=== PATIENT | female | born 1990 | race Caucasian/White ===

== ENCOUNTER 2016-05-30 17:44 | Emergency (ER) | payer OTHER | END 2016-05-30 18:49 | disposition home or self-care (01) | DX: S60.221A Contusion of right hand, initial encounter (principal); W23.0XXA Caught, crushed, jammed, or pinched between moving objects, initial encounter; Z97.5 Presence of (intrauterine) contraceptive device; Z87.42 Personal history of other diseases of the female genital tract ==

== ENCOUNTER 2017-01-01 11:53 | Emergency (ER) | payer OTHER ==
[2017-01-01 12:01] VITALS: BP 131/75
--- NOTE | 2017-01-01 13:35 | ED Physician Documentation ---
PD HPI UPPER EXT INJURY - Stated complaint Stated Complaint: THUMB LAC/INJ - Chief complaint Chief Complaint: Ext Problem - History obtained from History obtained from: Patient - History of Present Illness Location: Right, Finger (thumb) PD PAST MEDICAL HISTORY - Past Medical History Cardiovascular: None TIMBER SKIDDER: Endometriosis, Other (has IUP placed 2011 without periods since that time.) - Past Surgical History Past Surgical History: Yes - Present Medications Home Medications: Ambulatory Orders Medication Instructions Recorded Confirmed Amitriptyline [Elavil] 25 mg PO DAILY 05/30/16 01/01/17 Cetirizine HCl [Zyrtec] 10 mg PO DAILY 05/30/16 01/01/17 Cholecalciferol (Vitamin D3) 1,000 unit PO DAILY 01/01/17 01/01/17 [Vitamin D3] - Allergies Allergies/Adverse Reactions: Allergies Allergy/AdvReac Type Severity Reaction Status Date / Time amoxicillin Allergy Rash Verified 01/01/17 12:01 latex Allergy Rash Verified 01/01/17 12:01 Penicillins Allergy Rash Verified 01/01/17 12:01 - Social History Does the pt smoke?: No Smoking Status: Never smoker Does the pt drink ETOH?: No Does the pt have substance abuse?: No - Immunizations Immunizations are current?: Yes Results - Vitals Vitals: Vital Signs - 24 hr 01/01/17 11:58 Temperature 36.8 C Heart Rate 109 H Respiratory 18 Rate Blood Pressure 131/75 H O2 Saturation 98 Oxygen O2 Source Room air Departure - Departure Disposition: Home, Self Care Clinical Impression: Puncture wound of thumb, right Qualifiers: Encounter type: initial encounter Qualified Code(s): S61.031A - Puncture wound without foreign body of right thumb without damage to nail, initial encounter Condition: Stable Record reviewed to determine appropriate education?: Yes Instructions: ED Wound Puncture General Follow-Up: Mitch Villegas MD [Primary Care Provider] - Comments: Cleanse wound twice daily with soap and water and apply ointment. Keep it covered at work until it is sealed over. Tylenol or ibuprofen if needed for pains. Recheck if signs of infection. He did receive a tetanus booster today as well.
[2017-01-01] MEDS ORDERED: IBUPROFEN 400 MG TABLET PO STA (13:52)
[2017-01-01] MEDS ORDERED: ACETAMINOPHEN 325 MG TABLET PO STA (13:52)
[2017-01-01] MEDS ORDERED: TETANUS/DIPHTHERIA/PERTUSSIS 0.5 ML SYRINGE IM ONE (13:52)
[2017-01-01] MEDS ORDERED: TETANUS/DIPHT/PERTUSS (PED) 0.5 ML VIAL IM ONE (14:01)
[2017-01-01] MEDS ORDERED: IBUPROFEN 400 MG TABLET PO ONE (14:01)
[2017-01-01] MEDS ORDERED: ACETAMINOPHEN 325 MG TABLET PO ONE (14:01)
== END 2017-01-01 14:25 | disposition home or self-care (01) ==
LOC: ED 11:53
DX: S61.011A Laceration without foreign body of right thumb without damage to nail, initial encounter (principal); W45.0XXA Nail entering through skin, initial encounter; Y99.0 Civilian activity done for income or pay; Z23 Encounter for immunization
CPT/HCPCS: 1040M; 90471; 99283; A9270

== ENCOUNTER 2018-03-30 17:03 | Outpatient (CLI) | payer OTHER ==
[2018-03-30 17:34] LABS: CALCIUM 9.1 mg/dL (8.5-10.3); CREATININE 0.6 mg/dL (0.4-1.0)
[2018-03-30 17:44] LABS: BASOPHILS % (AUTO) 0.4 %; EOSINOPHILS % (AUTO) 0.5 %; HGB - HEMOGLOBIN 14.2 g/dL (12.0-16.0); LYMPHOCYTES # (AUTO) 2.1 10^3/uL (1.5-3.5); LYMPHOCYTES % (AUTO) 28.2 %; MEAN CORPUSCULAR HEMOGLOBIN 30.2 pg (27.0-31.0); MEAN CORPUSCULAR HGB CONC 33.4 g/dL (32.0-36.0); MEAN CORPUSCULAR VOLUME 90.5 fL (81.0-99.0); MEAN PLATELET VOLUME 8.3 fL (7.9-10.8); MONOCYTES # (AUTO) 0.5 10^3/uL (0.0-1.0); MONOCYTES % (AUTO) 7.1 %; NEUTROPHILS # (AUTO) 4.7 10^3/uL (1.5-6.6); NEUTROPHILS % (AUTO) 63.8 %; PLT - PLATELET COUNT 323 10^3/uL (130-450); RED BLOOD COUNT 4.69 10^6/uL (4.20-5.40); WHITE BLOOD COUNT 7.4 x10^3/uL (4.8-10.8)
[2018-03-30 17:57] LABS: BILIRUBIN,URINE NEGATIVE (NEGATIVE); GLUCOSE, URINE (UA) NEGATIVE (NEGATIVE); KETONES,URINE (UA) NEGATIVE (NEGATIVE); LEUKOCYTE ESTERASE, URINE NEGATIVE (NEGATIVE); NITRITE,URINE NEGATIVE (NEGATIVE); OCCULT BLOOD,URINE NEGATIVE (NEGATIVE); PROTEIN,URINE NEGATIVE (NEGATIVE); UROBILINOGEN,URINE 0.2 (NORMAL) E.U./dL (NORMAL)
[2018-03-30 17:59] LABS: CLARITY,URINE CLEAR (CLEAR); HCG UR QUAL NEGATIVE
== END 2018-03-30 17:04 | disposition home or self-care (01) ==
LOC: LAB 17:03
PROVIDERS: ATTEND Obstetrics & Gynecology
DX: R10.2 Pelvic and perineal pain (principal)
CPT/HCPCS: 36415; 80048; 81003; 81025; 85025; 86850; 86900; 86901

== ENCOUNTER 2018-04-01 06:09 | Inpatient (IN) | payer OTHER ==
[2018-04-01] MEDS ORDERED: ceFAZolin 2 GM/50 ML 2 GM/50 ML BAG IV ONE (06:32)
[2018-04-01 06:58] LABS: HCG UR QUAL NEGATIVE
--- NOTE | 2018-04-01 07:01 | ANESTHESIA ---
Pre-Anesthesia VS, & Labs - Diagnosis Pelvic Pain - Procedure LAVH, B Salpingectomy Vital Signs: Temp Pulse Resp BP Pulse Ox 36.8 C 82 16 121/76 99 04/01/18 06:52 04/01/18 06:52 04/01/18 06:52 04/01/18 06:52 04/01/18 06:52 Height 5 ft 8 in Weight (kg) 74.39 kg Body Mass Index 25.0 - NPO >8 hours - Is Patient ?: No - Lab Results Lab results reviewed: Yes Home Medications and Allergies Home Medications: Ambulatory Orders Fluticasone [Flonase] 1 sprays MARK ANTHONY BID 03/25/18 Loratadine [Claritin] 10 mg PO 03/25/18 Rizatriptan Benzoate [Maxalt Assisted Living Coordinator] 5 mg PO PRN 03/25/18 Sumatriptan Succinate [Imitrex] 4 mg SQ PRN 03/25/18 Valacyclovir HCl [Valtrex] 1,000 mg PO PRN 03/25/18 Verapamil [Calan] 80 mg PO DAILY PM 03/25/18 Amitriptyline [Elavil] 25 mg PO DAILY PM 05/30/16 Cholecalciferol (Vitamin D3) [Vitamin D3] 1,000 unit PO DAILY 01/01/17 Fluticasone [Flonase] 1 sprays MARK ANTHONY BID 03/25/18 Loratadine [Claritin] 10 mg PO 03/25/18 Rizatriptan Benzoate [Maxalt Assisted Living Coordinator] 5 mg PO PRN 03/25/18 Sumatriptan Succinate [Imitrex] 4 mg SQ PRN 03/25/18 Valacyclovir HCl [Valtrex] 1,000 mg PO PRN 03/25/18 Verapamil [Calan] 80 mg PO DAILY PM 03/25/18 Allergies/Adverse Reactions: Allergies Allergy/AdvReac Type Severity Reaction Status Date / Time amoxicillin Allergy Rash Verified 03/25/18 14:53 Penicillins Allergy Rash Verified 03/25/18 14:53 Anes History & Medical History - Anesthetic History Anesthesia Complications: reports: No previous complications Family history of Anesthesia Complications: Denies Family history of Malignant Hyperthermia: Denies - Medical History Cardiovascular: reports: None Pulmonary: reports: None Gastrointestinal: reports: None Urinary: reports: Other Musculoskeletal: reports: None Endocrine/Autoimmune: reports: None Skin: reports: Herpes zoster Smoking Status: Never smoker - Surgical History Gynecologic: Other Exam General: Alert, Oriented x3, Cooperative Dental: WNL Mouth Openin Fingerbreadth Neck Mobility: Normal Mallampati classification: II Thyromental Distance: 4-6 cm Respiratory: Lungs clear, Normal breath sounds Cardiovascular: Regular rate Mental/Cognitive Status: Alert/Oriented X3 Plan Anesthesia Type: General Consent for Procedure(s) Verified and Reviewed: Yes Code Status: Attempt Resuscitation ASA classification: 1-Healthy patient Is this case an emergency?: No
[2018-04-01] MEDS ORDERED: LACTATED RINGERS 1,000 ML IV ONE ×3 (07:07→11:15)
[2018-04-01] MEDS ORDERED: BUPIVACAINE 0.25% PF 30 ML VIAL ONE (07:36)
[2018-04-01] MEDS ORDERED: LIDOCAINE 1%-EPI 1:100000 30 ML MDV ONE (07:36)
--- NOTE | 2018-04-01 07:47 | OPERATIVE REPORT ---
Operative Report - General Admit Date: 04/01/18 Planned Procedure: Laparoscopic assisted vaginal hyst, bilateral salpingectomies Pre-Op Diagnosis: Chronic pelvic pain, endometriosis - Procedure Note Primary Surgeon: Dr. Juliet Holbrook Secondary Surgeon: Dr. Rei Cash Anesthesia Technique: General ET tube, Local Pathology: Uterus, cervix, and bilateral fallopian tubes Drain/Tube Type: Other (Banerjee catheter) - Other Other Information/Narrative: Indication: The patient is a 27-year-old 0 here for definitive surgical management of chronic pelvic pain and reported history of endometriosis. She has had on and off pelvic pain for several years. Laparoscopy with cystoscopy and hydrodistension in March 2015 was normal, though she reportedly had endometriosis noted on laparoscopy in 2011. She has been using a Mirena intrauterine device to suppress ovulation to manage her pain. This worked well for awhile. However, for the past 10 months, pain has been increasing again. She reports pain is primarily at the right lower quadrant with occasional left flank pain. Dyspareunia has also been a problem for her, though this was transiently improved over the years as well. She has been for referred to pelvic floor physical therapy but has not initiated that care yet. Additionally she has a history of urinary frequency and frequent UTIs sx. She has a history of migraines and allergies as well and is status post a LEEP in 2011. Her last Pap and HPV in January 2015 was normal. Though she is a nulligravida patient, she has no desire for future childbearing and has thoroughly considered such with her spouse. She has tried management of possible interstitial cystitis with bladder instillations performed in the outpatient setting. These were beneficial in 2016. However, recent trials have not been helpful for her. At this point, she is feeling that she would like definitive surgery to help with her chronic pain and as she has no desire for future childbearing desires a hysterectomy. We discussed the possibility that her pain may not improve after the hysterectomy or may recur in months to years, possibly requiring additional surgery to remove her ovaries. The alternatives for mgmt of her symptoms were discussed, and the patient desired to proceed with a hysterectomy. Risks, benefits, limitations, alternatives, and expectations or surgery were discussed, and the consent was reviewed and signed prior to the date of surgery. Findings: Exam under anesthesia: Uterus midplane, 7 wks, with no adnexal masses palpable. Surgery: IUD strings seen at time of placement of uterine manipulator. The IUD was removed prior to manipulator insertion. Laparoscopically, theh uterus was 6-7 weeks size with no Masses present.Fallopian tubes and ovaries were visualized, and 1/2 cm paratubal cyst was noted at the left fallopian tube. The fimbriated, distal end of the right fallopian tube was notable for an endometriosis lesion. 2 additional small endometriotic lesions were noted within the cul-de-sac. One was noted over the right uterosacral ligament, and one noted over the left uterosacral ligament. These were both absent at the completion of the surgery, suggesting removal with the uterus and cervix. No other endometriosis lesions were noted. The appendix was visualized and appeared normal. The bowel was noted to be full of gas, which limited visualization of the liver edge. There were no adhesions or other intracranial abnormalities noted. Procedure: The patient was taken to the operating room, where general endotracheal anesthesia was administered without difficulty. She was then positioned with her lower extremities in yellow-fin stirrups. Exam under anesthesia was then performed with the findings as noted above. Perineum, vagina, and abdomen were then prepped and draped in sterile fashion, and a banejree catheter was placed. Time out was then performed. Attention was first turned to placement of a uterine manipulator. A sterile bivalve speculum was inserted, and the cervix grasped with a single-toothed tenaculum. The IUD strings were grasped, and the Mirena IUD easily removed. The cervix was then dilated until a HUMI uterine manipulator could be placed and balloon inflated. The tenaculum and speculum were then removed. Attention was then turned to the laparoscopy. 0.25% Marcaine, plain, was injected infraumbilically, then a 7-mm vertical skin incision made. A Verrees needle was then inserted through the anterior layers of the abdominal wall with saline drop test suggesting intraperitoneal placement. Carbon dioxide gas insufflation was then performed with appropriate opening pressures noted. Once 2 L of gas was instilled, a 0-degree, 5 mm laparoscope was inserted into a 5 mm trocar and passed through the anterior layers of the abdominal wall using Optiview technique. The abdomen was visualized, then 2 additional ports placed at the right and left lower quadrants, first instilling local anesthetic then placing 5 mm ports. The patient was placed into Trendelenberg and bowel swept out of the cul-de-sac. The left distal fallopian tube was grasped and pulled anteriorly while the left tubo-ovarian ligament was cross-clamped, cauterized, and cut using the PlasmaKinetic. This incision was then extended medially across the mesosalpinx until the cornual region was reached. The left round ligament was then cross- clamped, cauterized, and cut, then the anterior leaf of the broad ligament undermined, cauterized, and cut starting the bladder flap dissection on the left. The left utero-ovarian pedicle was then cross-clamped, cauterized, and cut, then this incision extended into the peritoneum inferiorly. The left uterine vessels were then skeletonized, cross-clamped, cauterized, and cut. Attention was then turned to the right side, where the dissection was completed in similar fashion. The bladder flap was extended across the midline, completely dissecting the bladder inferiorly. Any bleeding was controlled with cautery. The trocars were left in situ as well as the majority of the gas while attention was turned to the vaginal portion of the case. The lower extremities were elevated to high lithotomy, and the uterine manipulator was removed and a sterile weighted speculum placed. The cervix was grasped with a double-toothed tenaculum, then 1% Lidocaine with epinephrine was injected circumferentially for hemostasis. A circumferential incision was then made with cauterization. The posterior cul-de-sac was then entered sharply, and an Auvard speculum placed after tagging the midline posterior peritoneum. The left, then right, uterosacral ligament was cross-clamped, cut, and suture- ligated with 0 vicryl. These were tagged for later identification. Two additional pedicles were then cut and suture-ligated before the anterior cul-de-sac could be entered bluntly using a moist sponge and the digital printer operator's finger. Two additional pedicles were secured on each side, then the uterus, cervix, and tubes removed vaginally. The peritoneum was then closed with a purse-string suture of 0 vicryl, then the vaginal cuff was irrigated with sterile saline. Cautery was applied as needed to achieve hemostasis, then the vaginal mucosa was closed with serial figure of eight sutures of 0 vicryl. A sponge stick was placed, and attention returned to laparoscopy to visualize the cuff for bleeding. The lower extremities were replaced into low lithotomy. Gas was instilled again, and the dissections site noted to have some bleeding at the left peritoneal edge just below the cuff. This was cauterized then hemostatic. Copious irrigation was performed. The dissection area appeared clear of the ureters, which were not easily visualized due to bowel in the cul-de-sac. At this point the procedure was deemed complete. The gas was allowed to escape, and the trocars removed. The incisions were then closed with 4-0 monocryl in a subcuticular fashion followed by Dermabond. The sponge stick was removed from the vagina. The patient was then replaced supine, awakened, extubated, and transferred to the PACU in stable condition. There were no complications. Sponge, lap, and needle count were correct x 3.
[2018-04-01] MEDS ORDERED: PROPOFOL 200 MG/20 ML VIAL IVP ONE (08:00)
[2018-04-01] MEDS ORDERED: ACETAMINOPHEN 1,000 MG/100 ML 100 ML IV ONE (08:00)
[2018-04-01] MEDS ORDERED: GLYCOPYRROLATE 1 MG/5 ML VIAL IVP ONE (08:00)
[2018-04-01] MEDS ORDERED: DEXAMETHASONE 4 MG/ML VIAL IVP ONE (08:00)
[2018-04-01] MEDS ORDERED: ONDANSETRON 4 MG/2 ML VIAL IVP ONE (08:00)
[2018-04-01] MEDS ORDERED: LIDOCAINE-MPF 2% 5 ML VIAL IM ONE (08:00)
[2018-04-01] MEDS ORDERED: KETOROLAC 30 MG/ML VIAL IVP ONE (08:00)
[2018-04-01] MEDS ORDERED: fentaNYL 250 MCG/5 ML VIAL IVP ONE (08:00)
[2018-04-01] MEDS ORDERED: ROCURONIUM 50 MG/5 ML VIAL IVP ONE (08:00)
[2018-04-01] MEDS ORDERED: NEOSTIGMINE 1 MG/1 ML 10 ML MDV IVP ONE (08:00)
[2018-04-01] MEDS ORDERED: MIDAZOLAM 2 MG/2 ML VIAL IVP ONE (08:00)
[2018-04-01] MEDS ORDERED: BUPIVACAINE 0.25% PF 30 ML VIAL SUBQ ONE ×2 (08:19)
[2018-04-01] MEDS ORDERED: LIDOCAINE 1%-EPI 1:100000 30 ML MDV SUBQ ONE ×3 (08:37→08:58)
[2018-04-01] MEDS ORDERED: ONDANSETRON 4 MG/2 ML VIAL IVP PRN (10:28)
[2018-04-01] MEDS ORDERED: SIMETHICONE CHEW 80 MG TABLET PO PRN (10:28)
[2018-04-01] MEDS ORDERED: oxyCODONE/ACET 5/325 Prepack 4 PO STA (10:34)
[2018-04-01] MEDS ORDERED: oxyCODONE 5 MG TABLET PO PRN (10:43)
[2018-04-01] MEDS: fentaNYL 100 MCG/2 ML VIAL ONE ×2 (10:53→11:03)
[2018-04-01] MEDS ORDERED: diphenhydrAMINE INJ 50 MG/ML VIAL ONE (11:17)
[2018-04-01] MEDS: KETOROLAC 30 MG/ML VIAL IVP SCH ×3 (11:28→22:37)
[2018-04-01] MEDS: LACTATED RINGERS 1,000 ML IV SCH ×2 (11:28→19:50)
[2018-04-01] MEDS: ACETAMINOPHEN 500 MG TABLET PO SCH ×3 (12:05→23:59)
[2018-04-01] MEDS: MORPHINE 10 MG/ML VIAL IVP PRN ×2 (13:24→16:43)
[2018-04-01] MEDS ORDERED: SODIUM CHLORIDE FLUSH 0.9% 10 ML SYRINGE ONE ×3 (16:39→22:34)
[2018-04-01] MEDS ORDERED: METOCLOPRAMIDE 10 MG/2 ML VIAL IVP PRN (18:00)
[2018-04-01] MEDS ORDERED: AMITRIPTYLINE 25 MG TABLET PO SCH (21:00)
[2018-04-01] MEDS: DOCUSATE SODIUM 100 MG CAPSULE PO SCH (21:05)
[2018-04-01] MEDS: VERAPAMIL 80 MG TABLET PO SCH (21:05)
[2018-04-02] MEDS: KETOROLAC 30 MG/ML VIAL IVP SCH (05:01)
[2018-04-02] MEDS: ACETAMINOPHEN 500 MG TABLET PO SCH ×2 (05:02→12:35)
[2018-04-02 05:17] LABS: BASOPHILS # (AUTO) 0.1 10^3/uL (0.0-0.1); BASOPHILS % (AUTO) 0.7 %; EOSINOPHILS % (AUTO) 0.2 %; HGB - HEMOGLOBIN 12.4 g/dL (12.0-16.0); LYMPHOCYTES # (AUTO) 1.6 10^3/uL (1.5-3.5); LYMPHOCYTES % (AUTO) 20.9 %; MEAN CORPUSCULAR HEMOGLOBIN 30.6 pg (27.0-31.0); MEAN CORPUSCULAR HGB CONC 33.8 g/dL (32.0-36.0); MEAN CORPUSCULAR VOLUME 90.5 fL (81.0-99.0); MONOCYTES # (AUTO) 0.7 10^3/uL (0.0-1.0); MONOCYTES % (AUTO) 9.5 %; NEUTROPHILS # (AUTO) 5.4 10^3/uL (1.5-6.6); NEUTROPHILS % (AUTO) 68.7 %; PLT - PLATELET COUNT 278 10^3/uL (130-450); RED BLOOD COUNT 4.04 10^6/uL (4.20-5.40); RED CELL DISTRIBUTION WIDTH 12.9 % (12.0-15.0); WHITE BLOOD COUNT 7.9 x10^3/uL (4.8-10.8)
[2018-04-02] MEDS: DOCUSATE SODIUM 100 MG CAPSULE PO SCH (09:15)
[2018-04-02] MEDS: VERAPAMIL 80 MG TABLET PO SCH (09:15)
[2018-04-02] MEDS ORDERED: SODIUM CHLORIDE FLUSH 0.9% 10 ML SYRINGE ONE (11:00)
[2018-04-02 15:15] VITALS: BP 112/73
--- NOTE | 2018-04-02 15:30 | DISCHARGE SUMMARY ---
"Discharge Summary Admit Date: 04/01/18 Discharge Date: 04/02/18 Discharging Provider: Dr. Juliet Holbrook Code Status: Attempt Resuscitation Condition at Discharge: Good Discharge Disposition: 01 Home, Self Care - DIAGNOSES Admission Diagnoses: Chronic pelvic pain, endometriosis Discharge Diagnoses with Status of Each Condition: Chronic pelvic pain, endometriosis, s/p LAVH with bilateral salpingectomies - HPI History of Present Illness: Please see admission H&P. - CONSULTS | PROCEDURES Consultations: None Procedures: Laparoscopic assisted vaginal hysterectomy with bilateral salpingectomies - HOSPITAL COURSE Hospital Course: After an uncomplicated surgical procedure the patient was admitted to the recovery room and then the [facility] in stable condition. On the night of surgery she did well. Pain was well controlled with Toradol and oral pain medications. On postoperative day #1 she was ambulating, tolerating regular diet with no nausea or vomiting, and pain was well controlled with Toradol and oral pain medications. Her Tavarez catheter had been removed in the morning and she met her due to void without concerns. Her vital signs were normal and stable during her hospital stay. - ALLERGIES Allergies/Adverse Reactions: Allergies Allergy/AdvReac Type Severity Reaction Status Date / Time amoxicillin Allergy Rash Verified 03/25/18 14:53 Penicillins Allergy Rash Verified 03/25/18 14:53 - MEDICATIONS Home Medications: Ambulatory Orders Medication Instructions Recorded Confirmed Amitriptyline [Elavil] 50 mg PO QPM 05/30/16 04/01/18 Loratadine [Claritin] 10 mg PO DAILY 03/25/18 04/01/18 Rizatriptan Benzoate [Maxalt Hand Upper And Bottom Lacer] 5 mg PO DAILY PRN 03/25/18 04/01/18 Sumatriptan Succinate [Imitrex] 4 mg SQ DAILY PRN 03/25/18 04/01/18 Valacyclovir HCl [Valtrex] 1,000 mg PO DAILY PRN 03/25/18 04/01/18 Verapamil [Calan] 80 mg PO QPM 03/25/18 04/01/18 Azelastine HCl 2 spray MARK ANTHONY BID 04/01/18 04/01/18 Fluticasone [Flonase] 2 sprays MARK ANTHONY DAILY PRN 04/01/18 04/01/18 Verapamil HCl 80 mg PO DAILY PRN 04/01/18 04/01/18 Home Medications Other | Comments: Patient has meds at home: Motrin 800 mg p.o. every 8 hours Percocet 1 tab p.o. every 4 hours or 2 tabs p.o. every 6 hours as needed pain Surfak 240 mg p.o. twice daily as needed constipation - PHYSICAL EXAM AT DISCHARGE General Appearance: positive: No acute distress, Alert Respiratory: positive: No respiratory distress, Breath sounds nml Cardiovascular: positive: Regular rate & rhythm, No murmur, No gallop Abdomen: positive: Nml bowel sounds, No distention, Tenderness (Appropriate po stop tenderness noted) Skin: positive: Color nml Extremities: positive: Nml appearance Neurologic/Psychiatric: positive: Oriented x3, Mood/affect nml - LABS Result Diagrams: 04/02/18 04:55 - FOLLOW UP Follow Up: [id number] at [facility] as scheduled - TIME SPENT Time Spent in Discharge (Minutes): 15"
--- NOTE | 2018-04-02 15:41 | Discharge Plan ---
Discharge Plan Disposition: 01 Home, Self Care Condition: Good Diet: Regular Activity Restrictions: See handout Shower Restrictions: No Driving Restrictions: Yes (May drive when pain-free off narcotics) Weight Bearing: Full Weight Additional Instructions or Follow Up instructions: See handout No Smoking: If you smoke, Please STOP! Call for help.
== END 2018-04-02 16:29 | disposition home or self-care (01) | DRG 743 ==
LOC: MS2 06:09
PROVIDERS: ADMIT Obstetrics & Gynecology; ATTEND Obstetrics & Gynecology
PROC: 0UT7FZZ Resection of Bilateral Fallopian Tubes, Via Natural or Artificial Opening With Percutaneous Endoscopic Assistance (ICD-10-PCS; 2018-04-01)
PROC: 0UT9FZZ Resection of Uterus, Via Natural or Artificial Opening With Percutaneous Endoscopic Assistance (ICD-10-PCS; principal; 2018-04-01 07:30)
DX: N80.0 Endometriosis of uterus (principal); R10.2 Pelvic and perineal pain; F43.21 Adjustment disorder with depressed mood; J30.2 Other seasonal allergic rhinitis; G89.29 Other chronic pain; G47.00 Insomnia, unspecified; N85.4 Malposition of uterus; F34.1 Dysthymic disorder; N87.9 Dysplasia of cervix uteri, unspecified; Z87.440 Personal history of urinary (tract) infections; R35.0 Frequency of micturition; G43.909 Migraine, unspecified, not intractable, without status migrainosus; Z88.1 Allergy status to other antibiotic agents; Z88.0 Allergy status to penicillin
CPT/HCPCS: 36415; 81025; 85025; 88307

== ENCOUNTER 2018-11-23 17:00 | Outpatient (CLI) | payer OTHER ==
[2018-11-23] MEDS ORDERED: GADOBUTROL 7.5 MMOL/7.5 ML VIAL ONE (19:24)
[2018-11-23] MEDS ORDERED: GADOBUTROL 7.5 MMOL/7.5 ML VIAL IVP ONE (19:26)
--- NOTE | 2018-11-25 10:16 | MRI Report ---
Reason: LOCALIZED SWEELING MASS AND LUMP LEFT AND RIGHT UP Procedure Date: 11/23/2018 Accession Number: [id number] / [id number] Procedure: MRI - Hand RT W/WO CPT Code: FULL RESULT: EXAM: RIGHT HAND MRI WITHOUT AND WITH CONTRAST EXAM DATE: 11/23/2018 07:53 PM. CLINICAL HISTORY: Swelling, mass, and lump. COMPARISON: 05/30/2016 radiograph. TECHNIQUE: Multiplanar, multisequence T1-weighted and fluid-sensitive sequences of the hand before and after administration of intravenous contrast. IV contrast: 7 mL Gadavist. Other: None. FINDINGS: Bones: No masses visible. Near the marker indicating the site of pain, there is a carpal boss at the base of the third metacarpal represented by a bony prominence dorsally. Cartilage: The articular cartilage is unremarkable. Ligaments: The visualized collateral ligaments are intact. Tendons: Minimal fluid is in the extensor compartment 3 and 4 tendon sheaths. The other visualized suction extensor tendons are unremarkable. Musculature: No edema or fatty atrophy. Other: No joint effusions or synovitis. The subcutaneous tissues are unremarkable. No abscess or cellulitis. IMPRESSION: 1. No mass. 2. Benign carpal boss at the base of the third metacarpal. 3. Mild tenosynovitis of the extensor compartment 3 and 4 tendon sheaths. RADIA
--- NOTE | 2018-11-25 10:34 | MRI Report ---
Reason: LOCALIZED SWEELING MASS AND LUMP LEFT AND RIGHT UP Procedure Date: 11/23/2018 Accession Number: [id number] / [id number] Procedure: MRI - Hand LT W/WO CPT Code: FULL RESULT: EXAM: LEFT HAND MRI WITHOUT AND WITH CONTRAST EXAM DATE: 11/23/2018 08:02 PM. CLINICAL HISTORY: Swelling/mass/lump on the left. COMPARISON: None. TECHNIQUE: Multiplanar, multisequence T1-weighted and fluid-sensitive sequences of the hand before and after administration of intravenous contrast. IV contrast: 7 mL Gadavist. Other: None. FINDINGS: Bones: No fractures or subluxations. No marrow edema or abnormal enhancement. No bone lesions. Cartilage: The articular cartilage is unremarkable. Ligaments: The visualized collateral ligaments are intact. Tendons: The flexor and extensor tendons are unremarkable. Musculature: No edema or fatty atrophy. Other: The marker indicating the site of the palpable abnormality is located at the volar portion of first metacarpophalangeal joint. There is a small effusion of the joint space. The subcutaneous tissues are unremarkable. No abscess or cellulitis. IMPRESSION: No masses. Nonspecific effusion of the first metacarpophalangeal joint. RADIA
== END 2018-11-23 17:01 | disposition home or self-care (01) ==
LOC: DI 17:00
PROVIDERS: ATTEND Orthopaedic Surgery
DX: R22.32 Localized swelling, mass and lump, left upper limb (principal); R22.31 Localized swelling, mass and lump, right upper limb; M25.442 Effusion, left hand; M77.8 Other enthesopathies, not elsewhere classified
CPT/HCPCS: 73220; A9585

== ENCOUNTER 2018-12-30 07:23 | Day surgery (SDC) | payer OTHER ==
[~2018-12-30 07:23] MED LIST: CLINDAMYCIN 600 MG/50 ML 50 ML IV ONE
[2018-12-30] MEDS ORDERED: MIDAZOLAM 2 MG/2 ML VIAL IVP ONE (07:24)
[2018-12-30] MEDS ORDERED: fentaNYL 100 MCG/2 ML VIAL IVP ONE (07:24)
[2018-12-30] MEDS ORDERED: KETOROLAC 30 MG/ML VIAL IVP ONE (07:24)
[2018-12-30] MEDS ORDERED: PROPOFOL 200 MG/20 ML VIAL IVP ONE (07:24)
[2018-12-30] MEDS ORDERED: DEXAMETHASONE 4 MG/ML VIAL IVP ONE (07:24)
[2018-12-30] MEDS ORDERED: LACTATED RINGERS 1,000 ML IV ONE (07:27)
--- NOTE | 2018-12-30 08:23 | ANESTHESIA ---
Pre-Anesthesia VS, & Labs - Diagnosis carpal boss right - Procedure right carpal boss excision Vital Signs: Temp Pulse Resp BP Pulse Ox 37 C 73 16 113/67 100 12/30/18 07:31 12/30/18 07:31 12/30/18 07:31 12/30/18 07:31 12/30/18 07:31 Height 5 ft 8 in Weight (kg) 75 kg Body Mass Index 25.0 - NPO >8 hours - Is Patient ?: No Home Medications and Allergies Home Medications: Ambulatory Orders Biotin 5 mg PO 12/20/18 Cholecalciferol (Vitamin D3) [Vitamin D3] 1,000 unit PO 12/20/18 Multivitamin [One-Daily Multi-Vitamin] 1 each PO 12/20/18 Rizatriptan Benzoate [Maxalt] 5 mg PO PRN 12/20/18 Amitriptyline [Elavil] 50 mg PO QPM 05/30/16 Loratadine [Claritin] 10 mg PO DAILY 03/25/18 Sumatriptan Succinate [Imitrex] 4 mg SQ DAILY PRN 03/25/18 Valacyclovir HCl [Valtrex] 1,000 mg PO PRN PRN 03/25/18 Azelastine HCl 2 spray MARK ANHTONY BID 04/01/18 Fluticasone [Flonase] 2 sprays MARK ANTHONY DAILY PRN 04/01/18 Biotin 5 mg PO 12/20/18 Cholecalciferol (Vitamin D3) [Vitamin D3] 1,000 unit PO 12/20/18 Multivitamin [One-Daily Multi-Vitamin] 1 each PO 12/20/18 Rizatriptan Benzoate [Maxalt] 5 mg PO PRN 12/20/18 Allergies/Adverse Reactions: Allergies Allergy/AdvReac Type Severity Reaction Status Date / Time amoxicillin Allergy Rash Verified 12/20/18 09:50 Penicillins Allergy Rash Verified 12/20/18 09:50 Anes History & Medical History - Anesthetic History Anesthesia Complications: reports: No previous complications - Medical History Cardiovascular: reports: None Pulmonary: reports: None Gastrointestinal: reports: None Urinary: reports: None Musculoskeletal: reports: Other Endocrine/Autoimmune: reports: HyPOthyroidism Skin: reports: None Smoking Status: Never smoker - Surgical History Gynecologic: Tubal ligation, Hysterectomy, Other Exam General: Alert Dental: WNL Mouth Opening: Greater than 4 Fingerbreadths Neck Mobility: Normal Mallampati classification: II Thyromental Distance: greater than 6 cm Respiratory: Lungs clear Cardiovascular: Regular rate, Normal S1, Normal S2 Mental/Cognitive Status: Alert/Oriented X3 Plan Anesthesia Type: General Consent for Procedure(s) Verified and Reviewed: Yes Code Status: Attempt Resuscitation ASA classification: 1-Healthy patient Is this case an emergency?: No
[2018-12-30] MEDS ORDERED: BUPIVACAINE 0.25% PF 10 ML VIAL ONE ×2 (09:01)
[2018-12-30] MEDS ORDERED: BUPIVACAINE 0.25% PF 10 ML VIAL SUBQ ONE (09:31)
[2018-12-30] MEDS: HYDROmorphone 0.5 MG/0.5 ML SYRINGE ONE ×4 (10:50→11:08)
[2018-12-30] MEDS ORDERED: ONDANSETRON 4 MG/2 ML VIAL IVP PRN (10:53)
[2018-12-30] MEDS ORDERED: oxyCODONE 5 MG TABLET PO PRN (10:53)
--- NOTE | 2018-12-30 11:12 | OPERATIVE REPORT ---
Operative Report - General Procedure Date: 12/30/18 - Procedure Note Estimated Blood Loss (mL): 20 - Other Other Information/Narrative: Date of Procedure: January 11 Planned Procedure: Right dorsal wrist carpal boss excision, extensor tendon exploration, possible repair Pre-op diagnosis: Symptomatic right carpal boss Procedure performed: Right dorsal wrist carpal boss excision, extensor tendon exploration, extensor tendon tenosynovectomy, long finger extensor tendon cyst excision Post-op diagnosis: Right carpal boss, extensor tenosynovitis, long finger extensor tendon cyst Primary Surgeon: RUKHSANA BEASLEY Secondary Surgeon: IBAN ESCALONA Anesthesia: General LMA EBL: 20 ml Tourniquet: 40 minutes, right arm at 250mmHg. Specimen(s) Information: Right long finger extensor tendon cyst Complication(s): None Condition: Stable to recovery Indications for Surgery: The patient is a 28-year-old right hand dominant female with a approximately 5 month history of a right dorsal carpal mass. The mass was tender to palpation, and bothersome. Exam demonstrated prominence over the third metacarpal base, with a mobile mass associated with the long finger extensor tendon. MRI demonstrated a third CMC joint carpal boss with prominence, but did not demonstrate any cystic mass in the extensor tendons. The patient was counseled on treatment options to include continued nonoperative treatment in the form of activity modification, possible aspiration of the mass versus surgical excision. Risks of surgery were discussed to include bleeding, infection, postoperative wrist stiffness, mass recurrence, persistence of pain, damage to nerves, vessels, tendons, ligaments, bone and cartilage and anesthesia complications to include medication side effects and allergic reactions and even . After a long discussion, they wished to proceed. Findings: Bony prominence of the base of the third metacarpal and distal capitate, tenosynovitis of the index finger extensors and long finger extensor, intratendinous cyst of the long finger extensor, excised. Descriptions of Procedure: The patient was met in the Preoperative Holding Area, at which time preoperative paperwork was confirmed. The right wrist was signed. The patient was then brought to Main Operating Room, placed supine on the Operating Room table, at which time pre procedure timeout was conducted to confirm correct patient, correct extremity and correct procedure and also to confirm presence and sterility of all required equipment and to confirm that antibiotics were being administered. After this was confirmed, general anesthesia was induced. The operative extremity was then prepped and draped over a hand table in the normal sterile fashion after a well-padded tourniquet was placed on the proximal arm. A final timeout was conducted to confirm the correct patient, correct extremity and correct procedure and to confirm that antibiotics had been administered within 30 minutes of incision time. The operative extremity was then exsanguinated with an Esmarch bandage and tourniquet inflated to 250mmHg. A approximately 3 cm transverse incision was made over the dorsal wrist centered on the prominence which is been marked preoperatively with patient participation using a #15 blade through the skin. Dissection was further carried out with tenotomy scissors and retractors until the extensor tendons were identified, the extensor tendons were freed up from the surrounding tenosynovium, and the interval was developed between the EDC to the long finger and the index finger extensor tendons, the base of the third metacarpal was exposed, and the extensor carpi radialis brevis insertion was identified. Digital palpation was used to confirm the location of the bony prominence, and the soft tissues were sharply dissected radially and laterally to expose the carpal boss. This was resected carefully using rongeurs until a smooth profile was obtained, the debridement was carried proximally to the distal capitate, with limited bony debridement was performed. Following debridement the surfaces were smoothed with a rasp, and the skin loosely closed to allow for digital palpation through the skin. No prominence was noted. The wound was irrigated, and bone wax was applied to the exposed cancellus surfaces of the third metacarpal and capitate, digital examination of the second metacarpal did not reveal any significant prominence. The wound was again irrigated, and the deep tissues overlying the bone were reapproximated using 3-0 Vicryl in interrupted [id number] fashion. The wound was again irrigated, and the tendons of the EIP, EDC to the index finger and EDC to the long finger were explored, further tenosynovitis was sharply debrided from around the tendons. During exploration of the long finger EDC tendon, a sub-synovial cyst was noted within the substance of the tendon. This was carefully sharply excised, without damage to the surrounding tendon. It was passed off the back table and sent for permanent pathology. Following cyst resection, the EDC tendon was in continuity, without need for repair. The wound was again irrigated, the tourniquet was let down and and digital pressure was held over the wound for approximately 5 minutes. Following release of pressure the wound was inspected, with appropriate skin edge bleeding, but no brisk bleeding noted. The subcutaneous and dermal layer was closed using 3-0 Vicryl interrupted stitches, and the skin was closed using 4-0 nylon interrupted horizontal mattress stitches. Following closure 10 mL of 0.25% Marcaine plain were injected proximal to the incision. Xeroform was placed over the incision followed by 4 x 4's with fluffs placed between the fingers. Webril was applied followed by a plaster volar resting splint and a gently compressive Almas wrap. The patient was then awakened from general anesthesia without complication, brought to the Post Anesthesia Care for further recovery. Postoperative Plan: 1. The patient will be discharged from the Same Day Surgery Unit when discharge criteria are met. 2. The patient will remain in the post-operative dressing until follow-up. 3. They have been instructed to start early finger ROM and not to lift anything heavier than a cup of coffee until follow-up. 4. Expect return to full activites in 6-12 weeks.
[2018-12-30 11:49] VITALS: BP 107/72
== END 2018-12-30 07:24 | disposition home or self-care (01) ==
LOC: SDS 07:23
PROVIDERS: ATTEND Orthopaedic Surgery
PROC: 0LB70ZZ Excision of Right Hand Tendon, Open Approach (ICD-10-PCS; 2018-12-30)
PROC: 0LB70ZZ Excision of Right Hand Tendon, Open Approach (ICD-10-PCS; 2018-12-30)
PROC: 0PBM0ZZ Excision of Right Carpal, Open Approach (ICD-10-PCS; principal; 2018-12-30 08:45)
DX: M25.7 Osteophyte (principal); M65.841 Other synovitis and tenosynovitis, right hand; M67.843 Other specified disorders of tendon, right hand; E03.9 Hypothyroidism, unspecified; M67.441 Ganglion, right hand
CPT/HCPCS: 25130; 26145; 26160; J1170; J7120

== ENCOUNTER 2019-06-01 16:02 | Emergency (ER) | payer OTHER ==
[2019-06-01] MEDS ORDERED: KETOROLAC 60 MG/2 ML VIAL IM STA (17:33)
--- NOTE | 2019-06-01 17:36 | ED Physician Documentation ---
PD HPI BACK PAIN - Stated complaint Stated Complaint: BACK PAIN - Chief complaint Chief Complaint: Trauma Ch/Bk - History obtained from History obtained from: Patient (28-year-old female comes in today with chief complaint of right-sided lower back pain. 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 Pain was sudden onset with some radiation down to her right buttocks. She denies falling. 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: Endometriosis, Other : None HEENT: None Psych: Anxiety Musculoskeletal: Other Derm: None - Past Surgical History Past Surgical History: Yes /PUBLIC SERVICE OFFICER: Tubal ligation, Hysterectomy, Other - Present Medications Home Medications: Ambulatory Orders Medication Instructions Recorded Confirmed Amitriptyline [Elavil] 50 mg PO QPM 05/30/16 04/01/18 Loratadine [Claritin] 10 mg PO DAILY 03/25/18 04/01/18 Sumatriptan Succinate [Imitrex] 4 mg SQ DAILY PRN 03/25/18 04/01/18 Valacyclovir HCl [Valtrex] 1,000 mg PO PRN PRN 03/25/18 04/01/18 Azelastine HCl 2 spray MARK ANTHONY BID 04/01/18 04/01/18 Fluticasone [Flonase] 2 sprays MARK ANTHONY DAILY PRN 04/01/18 04/01/18 Biotin 5 mg PO 12/20/18 Cholecalciferol (Vitamin D3) 1,000 unit PO 12/20/18 [Vitamin D3] Multivitamin [One-Daily 1 each PO 12/20/18 Multi-Vitamin] Rizatriptan Benzoate [Maxalt] 5 mg PO PRN 12/20/18 Ibuprofen [Motrin] 800 mg PO Q8H PRN #30 tablet 03/18/20 - Allergies Allergies/Adverse Reactions: Allergies Allergy/AdvReac Type Severity Reaction Status Date / Time amoxicillin Allergy Rash Verified 06/01/19 16:09 Penicillins Allergy Rash Verified 06/01/19 16:09 - Social History Does the pt smoke?: No Smoking Status: Never smoker Does the pt drink ETOH?: No Does the pt have substance abuse?: No - Immunizations Immunizations are current?: Yes - POLST Patient has POLST: No PD ED PE NORMAL - General General: Alert and oriented X 3, Well developed/nourished - HEENT HEENT: Atraumatic, PERRL, EOMI - Respiratory Respiratory: No respiratory distress - Abdomen Abdomen: Soft, Non tender - Back Back: No CVA TTP PD ED PE EXPANDED - Back Back: Limited ROM (Tender to palp to the right paraspinous muscle, tender to palp to the right SI joint, tender to palp to the right sciatic Without any radiation or shooting pains going down into her right leg.Limited range of motion secondary to pain) Results - Vitals Vitals: Vital Signs - 24 hr 06/01/19 16:09 Temperature 37.5 C Heart Rate 83 Respiratory 16 Rate Blood Pressure 116/73 O2 Saturation 98 Oxygen O2 Source Room air PD MEDICAL DECISION MAKING - ED course Complexity details: re-evaluated patient (Patient's pain decreased significantly after the Toradol injection.), d/w patient Departure - Departure Clinical Impression: Lower back pain Qualifiers: Chronicity: acute Back pain laterality: right Sciatica presence: without sciatica Qualified Code(s): M54.5 - Low back pain Instructions: ED Low Back Pain Injury Prescriptions: Ibuprofen [Motrin] 800 mg PO Q8H PRN #30 tablet PRN Reason: PAIN &/OR FEVER Comments: As I discussed with you today in the ER, you have a lower back strain, with right-sided sciatica pain. I prescribed ibuprofen 800 mg tablets, you can take 1 tablet every 8 hours. He can apply ice to lower back, 10 minutes every couple 3hours tonight. Starting tomorrow use heat on your lower back to help relax it, and then start doing gentle range of motion exercises to lower back as we discussed. Let pain be her guide, do not push through the pain. If he is sleeping on your back tonight, prop your knees up with a pillow, if sleeping on her side have a pillow between your legs. I also provided you a note for work you may return to work on Thursday.Follow-up with your PCP in 1 week if your symptoms fail to improve, or he may return to the ER if they worsen, you lose function of your bowel or bladders, or you develop numbness tingling weakness to your lower extremities. Forms: Activity restrictions
[2019-06-01 18:13] VITALS: BP 122/78
== END 2019-06-01 18:20 | disposition home or self-care (01) ==
LOC: ED 16:02
DX: S39.012A Strain of muscle, fascia and tendon of lower back, initial encounter (principal); M54.31 Sciatica, right side; X50.1XXA Overexertion from prolonged static or awkward postures, initial encounter; Y93.K1 Activity, walking an animal; Y92.89 Other specified places as the place of occurrence of the external cause; Y99.0 Civilian activity done for income or pay
CPT/HCPCS: 1040M; 96372; 99283; 99284

== ENCOUNTER 2019-08-23 14:18 | Emergency (ER) | payer OTHER ==
--- NOTE | 2019-08-23 15:33 | ED Physician Documentation ---
PD HPI HEAD INJURY - Stated complaint Stated Complaint: HEAD INJ - Chief complaint Chief Complaint: General - History obtained from History obtained from: Patient - History of Present Illness Mechanism of head injury: Fell Where head injury occurred: Home Timing - onset: Today Location of injury: Back Quality of pain: Pain Associated symptoms: Nausea / vomiting. No: LOC, AMS, Amnesia, Paresthesias, Seizures, Ear drainage, Nasal drainage Symptoms improve with: Rest Symptoms worsen with: Palpation Contributing factors: No: Anticoagulated Similar symptoms before: Has not had sx before Recently seen: Not recently seen - Additional information Additional information: Previously well 28-year-old female went to walk her dog this morning it was raining hard out she went outside the dog pulled her she slipped her feet out from underneath her she landed onto her back and the back of her head. She had the wind knocked out of her self and she had some time to recover from all this. She does not think she was knocked out. She has persistent headache nausea dizziness and difficulty concentrating. She has not had vomiting. She denies any pain in her neck specifically. She does have pain at the base of her skull. She rates her headache is 4 out of 10. Review of Systems Constitutional: denies: Fever Eyes: denies: Decreased vision Ears: denies: Ear pain Nose: denies: Rhinorrhea / runny nose, Congestion Throat: denies: Sore throat Cardiac: denies: Chest pain / pressure, Palpitations Respiratory: denies: Dyspnea, Cough GI: reports: Nausea. denies: Abdominal Pain, Vomiting : denies: Dysuria, Frequency Skin: denies: Rash Musculoskeletal: denies: Neck pain, Back pain, Extremity pain, Joint pain Neurologic: reports: Confused, Headache, Head injury. 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, Other : None HEENT: None Psych: Anxiety Musculoskeletal: Other Derm: None - Past Surgical History Past Surgical History: Yes /EGG GRADER: Tubal ligation, Hysterectomy, Other - Present Medications Home Medications: Ambulatory Orders Medication Instructions Recorded Confirmed Amitriptyline [Elavil] 50 mg PO QPM 05/30/16 04/01/18 Loratadine [Claritin] 10 mg PO DAILY 03/25/18 04/01/18 Sumatriptan Succinate [Imitrex] 4 mg SQ DAILY PRN 03/25/18 04/01/18 Valacyclovir HCl [Valtrex] 1,000 mg PO PRN PRN 03/25/18 04/01/18 Azelastine HCl 2 spray MARK ANTHONY BID 04/01/18 04/01/18 Fluticasone [Flonase] 2 sprays MARK ANTHONY DAILY PRN 04/01/18 04/01/18 Biotin 5 mg PO 12/20/18 Cholecalciferol (Vitamin D3) 1,000 unit PO 12/20/18 [Vitamin D3] Multivitamin [One-Daily 1 each PO 12/20/18 Multi-Vitamin] Rizatriptan Benzoate [Maxalt] 5 mg PO PRN 12/20/18 Ibuprofen [Motrin] 800 mg PO Q8H PRN #30 tablet 06/01/19 Ondansetron Odt [Zofran] 4 mg TL Q6H PRN #10 tablet 08/23/19 - Allergies Allergies/Adverse Reactions: Allergies Allergy/AdvReac Type Severity Reaction Status Date / Time amoxicillin Allergy Rash Verified 06/01/19 16:09 Penicillins Allergy Rash Verified 06/01/19 16:09 - Social History Does the pt smoke?: No Smoking Status: Never smoker Does the pt drink ETOH?: No Does the pt have substance abuse?: No - Immunizations Immunizations are current?: Yes - POLST Patient has POLST: No PD ED PE NORMAL - Vitals Vital signs reviewed: Yes (normal ) - General General: Alert and oriented X 3, No acute distress, Well developed/nourished - HEENT HEENT: PERRL, EOMI, Ears normal, Moist mucous membranes, Other (There is specific point tenderness to the base of the skull posterior. There is no stepoff or crepitance and the neck and cervical spinous processes are not specifically tender. 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, No motor deficit, No sensory deficit, Normal speech Eye Opening: Spontaneous Motor: Obeys Commands Verbal: Oriented GCS Score: 15 - Psych Psych: Normal mood, Normal affect Results - Vitals Vitals: Vital Signs - 24 hr 08/23/19 08/23/19 08/23/19 14:30 14:34 16:36 Temperature 36.8 C 37.3 C Heart Rate 83 82 75 Respiratory 16 16 18 Rate Blood Pressure 120/74 122/65 118/84 H O2 Saturation 99 100 100 Oxygen O2 Source Room air - Rads (name of study) CT head Radiology: Prelim report reviewed (Impression: Unremarkable noncontrast head CT, without an image explanation found for the patient's presenting symptoms.), EMP read indepedently, See rad report PD MEDICAL DECISION MAKING - ED course Complexity details: reviewed results, re-evaluated patient, considered differential, d/w patient ED course: 28-year-old female with a concussion without loss of consciousness has persistence of symptoms of headache dizziness nausea and difficulty concentrating. Her CT scan is without evidence of intracranial hemorrhage. Again the patient instructions on concussion and I have indicated the patient may be a short-lived syndrome or not. Departure - Departure Disposition: 01 Home, Self Care Clinical Impression: Concussion Qualifiers: Encounter type: initial encounter Loss of consciousness presence/duration: without LOC Qualified Code(s): S06.0X0A - Concussion without loss of consciousness, initial encounter Condition: Stable Instructions: ED Concussion Follow-Up: MARK ANTHONY madaygeri Payne [Provider Group] Prescriptions: Ondansetron Odt [Zofran] 4 mg TL Q6H PRN #10 tablet PRN Reason: Nausea / Vomiting Forms: Activity restrictions
--- NOTE | 2019-08-23 16:04 | CT Report ---
Reason: concussion persistent symptoms,GUARDADO,dizzy,nausea Procedure Date: 08/23/2019 Accession Number: [id number] / [id number] Procedure: CT - HEAD WO CPT Code: Final Report FULL RESULT: PROCEDURE: HEAD WO INDICATIONS: concussion persistent symptoms,GUARDADO,dizzy,nausea TECHNIQUE: Noncontrast 4.5 mm thick angled axial sections acquired from the foramen magnum to the vertex. For radiation dose reduction, the following was used: automated exposure control, adjustment of mA and/or kV according to patient size. COMPARISON: None. FINDINGS: Image quality: Diagnostic, with note made of motion artifact. CSF spaces: Basal cisterns are patent. No extra-axial fluid collections. Ventricles are normal in size and shape. Brain: No midline shift. No intracranial masses or hemorrhage. Conteh-white matter interface is normal. Skull and face: Calvarium and visualized facial bones are intact, without suspicious lesions. Sinuses: Visualized sinuses and mastoids are clear. IMPRESSION: Unremarkable noncontrast head CT, without an imaging explanation found for the patient's presenting symptoms. Reviewed by: Enzo Ronquillo MD on 08/23/2019 3:03 PM LASHELL Approved by: Enzo Ronquillo MD on 08/23/2019 3:03 PM AKGLENN Station ID: [id number]
[2019-08-23 16:36] VITALS: BP 118/84
== END 2019-08-23 16:44 | disposition home or self-care (01) ==
LOC: ED 14:18
DX: S06.0X0A Concussion without loss of consciousness, initial encounter (principal); W01.0XXA Fall on same level from slipping, tripping and stumbling without subsequent striking against object, initial encounter; Y93.K1 Activity, walking an animal; Y92.009 Unspecified place in unspecified non-institutional (private) residence as the place of occurrence of the external cause; Y99.0 Civilian activity done for income or pay
CPT/HCPCS: 70450; 99283; 99284

== ENCOUNTER 2020-04-05 19:55 | Outpatient (CLI) | payer SELFPAY | END 2020-04-05 19:56 | disposition home or self-care (01) | LOC: COV 19:55 | PROVIDERS: ATTEND Family Medicine | DX: U07.1 COVID-19 (principal) ==

== ENCOUNTER 2021-08-14 08:00 | Outpatient (CLI) | payer MEDICAID, OTHER ==
[2021-08-14 18:10] LABS: BASOPHILS % (AUTO) 0.5 %; EOSINOPHILS % (AUTO) 1.1 %; HCT - HEMATOCRIT 39.2 % (37.0-47.0); HGB - HEMOGLOBIN 13.1 g/dL (12.0-16.0); LYMPHOCYTES # (AUTO) 1.1 10^3/uL (1.5-3.5); LYMPHOCYTES % (AUTO) 28.6 %; MEAN CORPUSCULAR HEMOGLOBIN 30.6 pg (27.0-31.0); MEAN CORPUSCULAR HGB CONC 33.4 g/dL (32.0-36.0); MEAN CORPUSCULAR VOLUME 91.6 fL (81.0-99.0); MEAN PLATELET VOLUME 10.8 fL (7.9-10.8); MONOCYTES # (AUTO) 0.3 10^3/uL (0.0-1.0); MONOCYTES % (AUTO) 9.3 %; NEUTROPHILS # (AUTO) 2.2 10^3/uL (1.5-6.6); NEUTROPHILS % (AUTO) 60.5 %; PLT - PLATELET COUNT 247 10^3/uL (130-450); RED BLOOD COUNT 4.28 10^6/uL (4.20-5.40); RED CELL DISTRIBUTION WIDTH 12.5 % (12.0-15.0); WHITE BLOOD COUNT 3.7 x10^3/uL (4.8-10.8)
[2021-08-14 18:14] LABS: ALBUMIN 4.2 g/dL (3.2-5.5); ALBUMIN/GLOBULIN RATIO 1.6 (1.0-2.2); BILIRUBIN,TOTAL 0.6 mg/dL (0.2-1.0); CALCIUM 9.2 mg/dL (8.5-10.3); CREATININE 0.8 mg/dL (0.4-1.0); POTASSIUM 4.1 mmol/L (3.5-5.0); TOTAL PROTEIN 6.9 g/dL (6.7-8.2)
== END 2021-08-14 23:59 | disposition home or self-care (01) ==
LOC: LAB.N 08:00
PROVIDERS: ATTEND Physician Assistant
DX: R55 Syncope and collapse (principal)
CPT/HCPCS: 36415; 80053; 84443; 85025

== ENCOUNTER 2021-08-28 13:44 | Outpatient (CLI) | payer MEDICAID ==
[2021-08-28 17:57] LABS: BASOPHILS % (AUTO) 0.2 %; EOSINOPHILS % (AUTO) 0.2 %; HCT - HEMATOCRIT 38.7 % (37.0-47.0); HGB - HEMOGLOBIN 12.8 g/dL (12.0-16.0); LYMPHOCYTES # (AUTO) 1.3 10^3/uL (1.5-3.5); LYMPHOCYTES % (AUTO) 28.8 %; MEAN CORPUSCULAR HEMOGLOBIN 29.6 pg (27.0-31.0); MEAN CORPUSCULAR HGB CONC 33.1 g/dL (32.0-36.0); MEAN CORPUSCULAR VOLUME 89.6 fL (81.0-99.0); MEAN PLATELET VOLUME 10.4 fL (7.9-10.8); MONOCYTES # (AUTO) 0.5 10^3/uL (0.0-1.0); MONOCYTES % (AUTO) 11.4 %; NEUTROPHILS # (AUTO) 2.8 10^3/uL (1.5-6.6); NEUTROPHILS % (AUTO) 59.2 %; PLT - PLATELET COUNT 251 10^3/uL (130-450); RED BLOOD COUNT 4.32 10^6/uL (4.20-5.40); RED CELL DISTRIBUTION WIDTH 12.1 % (12.0-15.0); WHITE BLOOD COUNT 4.7 x10^3/uL (4.8-10.8)
== END 2021-08-28 13:45 | disposition home or self-care (01) ==
LOC: LAB.N 13:44
PROVIDERS: ATTEND Family Medicine
DX: D72.819 Decreased white blood cell count, unspecified (principal)
CPT/HCPCS: 36415; 85025

== ENCOUNTER 2021-09-14 11:15 | Outpatient (CLI) | payer MEDICAID ==
[2021-09-14 19:37] LABS: CHOL/HDL RATIO 2.9 (<4.4); CHOLESTEROL 160 mg/dL; HDL CHOLESTEROL 56 mg/dL; TRIGLYCERIDES 31 mg/dL
[2021-09-14 19:47] LABS: THYROID STIMULATING HORMONE 7.19 uIU/mL (0.34-5.60)
[2021-09-14 19:48] LABS: FREE T3 3.36 pg/mL (2.5-3.9)
[2021-09-14 19:49] LABS: FREE T4 (FREE THYROXINE) 0.79 ng/dL (0.58-1.64)
== END 2021-09-14 11:16 | disposition home or self-care (01) ==
LOC: LAB.N 11:15
PROVIDERS: ATTEND Physician Assistant
DX: E04.9 Nontoxic goiter, unspecified (principal); R19.7 Diarrhea, unspecified; Z13.220 Encounter for screening for lipoid disorders
CPT/HCPCS: 36415; 80061; 83721; 84439; 84443; 84481; 87177; 87328

== ENCOUNTER 2021-09-16 08:00 | Outpatient (CLI) | payer MEDICAID | END 2021-09-16 23:59 | disposition home or self-care (01) | LOC: LAB.N 08:00 | PROVIDERS: ATTEND Physician Assistant | DX: R19.7 Diarrhea, unspecified (principal) | CPT/HCPCS: 87177; 87328 ==

== ENCOUNTER 2021-10-01 15:44 | Outpatient (CLI) | payer MEDICAID ==
--- NOTE | 2021-10-02 09:32 | Ultrasound Report ---
PROCEDURE: Pelvic w/Transvaginal INDICATIONS: GOITER, PELVIC PAIN TECHNIQUE: Real-time scanning was performed of the pelvic organs, with image documentation. Additional endovagi nal scanning was necessary due to incomplete visualization of the adnexal and endometrial structures by transabdominal scanning. COMPARISON: 08/02/2014 FINDINGS: Uterus: Partial hysterectomy. Ovaries: Vagina within normal limits. On transvaginal scanning, right ovary measured 3.1 x 1.8 x 2.3 cm. Left ovary measures 3.0 x 1.9 x 2. 5 cm. Other: No pathologic free abdominal or pelvic fluid. IMPRESSION: Partial hysterectomy. Ovaries are within normal limits. No pathologic pelvic fluid. Reviewed by: Aneudy Pool MD on 10/02/2021 9:31 AM PDT Approved by: Aneudy Pool MD on 10/02/2021 9:31 AM PDT Station ID: [id number]
--- NOTE | 2021-10-02 10:06 | Ultrasound Report ---
PROCEDURE: Head or Neck Soft Tissue INDICATIONS: GOITER, PELVIC PAIN TECHNIQUE: Real time scanning was performed of the neck region of interest, with image documentation . COMPARISON: None. FINDINGS: Thyroid isthmus measures 0.3 cm. Right thyroid measures 5 x 2.2 x 2.4 cm. The left thyroid measures 5 x 2.1 x 2.2 cm. Overall heterogeneous and hyperemic thyroid parenchyma. Small calcification noted in the left inferio r thyroid. No discrete nodule otherwise. Cluster of prominent lymph nodes in the left lower neck, largest measuring 1 cm with a cortex measuri ng 0.3 cm IMPRESSION: Sonographic thyroid appearance suggestive of thyroiditis. Correlate with laboratory studies. No discr ete nodule needing FNA. Cluster of prominent left lower neck lymph nodes may be reactive in this clinical setting. Clinical f ollow-up is suggested. Reimaging may be performed if this persists or enlarges. Reviewed by: Aneudy Pool MD on 10/02/2021 10:05 AM PDT Approved by: Aneudy Pool MD on 10/02/2021 10:05 AM PDT Station ID: [id number]
== END 2021-10-01 15:45 | disposition home or self-care (01) ==
LOC: DI 15:44
PROVIDERS: ATTEND Physician Assistant
DX: E04.9 Nontoxic goiter, unspecified (principal); R10.2 Pelvic and perineal pain; Z90.711 Acquired absence of uterus with remaining cervical stump

== ENCOUNTER 2021-10-09 12:51 | Outpatient (CLI) | payer MEDICAID ==
--- NOTE | 2021-10-09 16:47 | CT Report ---
PROCEDURE: Abdomen/Pelvis WO INDICATIONS: RIGHT FLANK PAIN TECHNIQUE: Noncontrast 5 mm thick sections acquired from the diaphragms to the symphysis. 5 mm coronal and sagi ttal reformats were then performed. For radiation dose reduction, the following was used: automated exposure control, adjustment of mA and/or kV according to patient size. COMPARISON: None. FINDINGS: Image quality: Excellent. ABDOMEN: Lung bases: Lung bases are clear. Heart size is normal. Solid organs: Liver and spleen are normal in size. Gallbladder contains a 4 mm gallstone. No eviden ce for pericholecystic inflammatory stranding. Pancreas is normal in contours. No adrenal nodules. Kidneys are normal in size, without hydronephrosis. There is a nonobstructing 3 mm punctate right r enal stone. Right ureter is normal in course and caliber without evidence for ureteral stone. Left ur eter appears normal in course and caliber with possible 2 mm stone noted at the distal margins of the left ureter near the ureterovesicular junction. This is difficult to confirm given lack of intraperi toneal fat and resulting close apposition of adjacent soft tissue structures. No hydroureter or periu reteral stranding. Peritoneum and bowel: Unenhanced bowel loops demonstrate normal wall thickness and caliber. Large a mount of fecal material noted throughout the colon most pronounced in the ascending colon, proximal t ransverse colon, and descending colon. The appendix is not definitively visualized. However, the most likely candidate appears normal. No secondary findings for acute inflammation of the right lower luis drant. No free fluid or air. Nodes and vessels: No retroperitoneal or mesenteric adenopathy by size criteria. Aorta and inferior vena cava are normal in caliber. Miscellaneous: No ventral hernias. PELVIS: Genitourinary: Bladder wall thickness is normal. No urinary bladder stone. Miscellaneous: No inguinal hernias or adenopathy. Bones: No suspicious bony lesions. No acute vertebral body compression fractures. IMPRESSION: 1. A nonobstructing 3 mm right renal stone without evidence for hydronephrosis. No perinephric strand ing. 2. Possible 2 mm nonobstructing distal left ureteral stone visualized near the left ureterovesicular junction. No evidence for left hydroureteronephrosis or inflammatory changes. 3. Large amount of fecal material seen throughout the colon. 4. Cholelithiasis without CT evidence for acute cholecystitis. Reviewed by: Barak Tao MD on 10/09/2021 4:45 PM PDT Approved by: Barak Tao MD on 10/09/2021 4:45 PM PDT Station ID: [id number]
== END 2021-10-09 12:52 | disposition home or self-care (01) ==
LOC: DI 12:51
PROVIDERS: ATTEND Urology
DX: R10.9 Unspecified abdominal pain (principal); N20.1 Calculus of ureter; K80.20 Calculus of gallbladder without cholecystitis without obstruction

== ENCOUNTER 2021-10-17 12:57 | Outpatient (CLI) | payer MEDICAID | END 2021-10-17 12:58 | disposition home or self-care (01) | LOC: MAC.MOP 12:57 | PROVIDERS: ATTEND Physician Assistant | DX: R55 Syncope and collapse (principal) | CPT/HCPCS: 93242 ==

== ENCOUNTER 2022-05-01 12:40 | Outpatient (CLI) | payer MEDICAID ==
[2022-05-01 13:35] LABS: THYROID STIMULATING HORMONE 6.48 uIU/mL (0.34-5.60)
[2022-05-01 13:37] LABS: FREE T3 3.27 pg/mL (2.5-3.9); FREE T4 (FREE THYROXINE) 0.91 ng/dL (0.58-1.64)
--- NOTE | 2022-05-01 19:36 | XRAY Report ---
PROCEDURE: Cervical Spine Comp w/Flex/Ext INDICATIONS: NUMBNESS AND TINGLING, LEFT ARN AND LEG TECHNIQUE: 8 views of the cervical spine were acquired. COMPARISON: None. FINDINGS: Bones: No fractures or dislocations to the T1 level. No suspicious bony lesions. There is normal r xavier of motion between flexion and extension, with preserved normal bony alignment. Soft tissues: Prevertebral soft tissues are normal in thickness. IMPRESSION: No significant osseous abnormality. Reviewed by: Bolivar Cedillo MD on 05/01/2022 7:35 PM PST Approved by: Bolivar Cedillo MD on 05/01/2022 7:35 PM PST Station ID: [id number]
== END 2022-05-01 12:41 | disposition home or self-care (01) ==
LOC: DI 12:40
PROVIDERS: ATTEND Physician Assistant
DX: R20.2 Paresthesia of skin (principal); E06.9 Thyroiditis, unspecified
CPT/HCPCS: 36415; 84439; 84443; 84481

== ENCOUNTER 2022-07-01 18:28 | Outpatient (CLI) | payer MEDICAID ==
--- NOTE | 2022-07-02 10:04 | Ultrasound Report ---
PROCEDURE: Pelvic w/Transvaginal INDICATIONS: PELVIC PAIN TECHNIQUE: Real-time scanning was performed of the pelvic organs, with image documentation. Additional endovagi nal scanning was necessary due to incomplete visualization of the adnexal and endometrial structures by transabdominal scanning. COMPARISON: None. FINDINGS: Uterus: Surgical absent. Ovaries: The right ovary measures 2.8 x 1.7 x 3.1 cm, with a calculated ovarian volume of 8 cc. The left ovary measures 2.9 x 1.5 x 2.9 cm, with a calculated ovarian volume of 7 cc. The ovaries have a normal sonographic appearance. Less than 12 follicles can be seen in each ovary. No adnexal davina s are seen. No cystic lesions measuring greater than 3 cm. Other: No pathologic free abdominal or pelvic fluid. Targeted ultrasound of the right groin demonstr ates a reducible, fat-containing inguinal hernia. This corresponds to the patient's region of pain. IMPRESSION: Targeted ultrasound of the right groin demonstrates a reducible, fat-containing inguinal hernia. This corresponds to the patient's region of pain. Normal sonographic appearance of the ovaries. Reviewed by: Pasha Mullins on 07/02/2022 10:02 AM PDT Approved by: Pasha Mullins on 07/02/2022 10:02 AM PDT Station ID: [id number]
== END 2022-07-01 18:29 | disposition home or self-care (01) ==
LOC: DI 18:28
PROVIDERS: ATTEND Nurse Practitioner
DX: K40.90 Unilateral inguinal hernia, without obstruction or gangrene, not specified as recurrent (principal)

== ENCOUNTER 2022-07-02 15:40 | Outpatient (CLI) | payer MEDICAID ==
[2022-07-02 15:32] VITALS: BP 98/60
--- NOTE | 2022-07-02 15:32 | SLEEP CARE CONSULTATION ---
Information from patient questionnaire entered by Joycelyn Slade. I have reviewed and concur with the information entered by Joycelyn Slade. This document represents the service I personally performed and the decisions made by me, Asha Emmanuel ARNP. History of Present Illness Service Date and Time: 07/02/2022 1500 Reason for Visit: New patient Chief Complaint: reports: Insomnia, Unrefreshed sleep, Snoring, Observed pauses in breathing, Fatigue, Frequent awakenings at night Date of Onset: COUPLE YRS Usual bedtime: 11PM Time it takes to fall asleep: QUICK WITH MEDS WITHOUT HRS Snores at night: Yes Observed to quit breathing while asleep: Yes Sleeps alone due to snoring: No Number of times waking at night: 5+ Reasons for waking at night: reports: Choking, Snoring, Gasping for air Toss, Turn, or Twitch while sleeping: Yes Recalls having dreams: Yes Usually gets out of bed at: 9AM Feels refreshed in the morning: No Morning headache: No Sleepy or fatigued during the day: Yes Ever fallen asleep while driving: No Takes day naps: No Prior sleep studies: Yes Year and Where: 2011 Additional HPI information: I had the pleasure of seeing KVNG CHAN today regarding the possibility of her having a sleep disorder. Her current complaints are fatigue, frequent night awakening, insomnia, observed pauses in breathing, snoring and unrefreshed sleep. She states she is a very restless sleeper and wakes up several times a night. She states her tells her that snores loudly and will stop breathing at night. She has woke up gasping for air. She is taking trazodone to be able to go to sleep. If she does not take it she will take hours to fall asleep. - Parasomnia Symptoms Ever been unable to move upon waking from sleep: Yes (couple times a month) Walks in sleep: No Talks in sleep: No (not that she knows of) Ever acted out dreams in sleep: No Ever felt weak in the knees when startled or emotional: Yes (has fallen to ground; gets "weird tingling" that goes up her arm) Bothered by creepy, crawly, restless sensations in legs: Yes (usually about 2:30 in AM) Problems with memory or concentration: Yes (both, mostly memory) Subjective Initial [place] Sleepiness Scale score: 1 (07/02/22) Past Medical History Past Medical History: reports: Claustrophobia, Anxiety, Other (HASHIMOTOS ) Social History The patient's occupation is a [employer]. Patient is and lives in [place]. Have you smoked in the past 12 months: No Alcohol use: No Caffeine use: Yes Caffeine amount and frequency: 2-3 CUPS EVERY MORNING COFFEE Family History Family history of sleep disordered breathing: Yes Family Hx Sleep Apnea: Mother: Snoring, Sleep apnea - Untreated, Father: Snoring, Sleep apnea - Treated, Sibling: Snoring, Grandparent: Snoring Allergies and Home Medications Known drug allergies: Yes (CILLINS) Drug allergies reviewed: Yes Home medication list reviewed: Yes (see updated list in EMR) Allergy and home medication list: Allergies amoxicillin Allergy (Verified 07/01/22 14:52) Rash Penicillins Allergy (Verified 07/01/22 14:52) Rash Review of Systems Weight loss over past 5 years: 55 Cardiovascular: denies: high blood pressure Respiratory: reports: chronic cough Gastrointestinal: denies: heartburn Urinary: reports: frequency Neurological: reports: headaches (migraine hx, random), head trauma (concussion when child) Psychiatric: reports: anxiety, depression (seasonal, in summer) Ear/Nose/Throat: reports: wisdom teeth removed. denies: tonsillectomy Endocrine: reports: thyroid disease, sluggishness, excessive thirst, increased urination, unexplained weakness Musculoskeletal: reports: muscle pain or cramping Immunologic: reports: sneezing, itching, allergies to food or environment Physical Exam Vital signs obtained and entered by: JOYCELYN Grey MA Blood Pressure: 98/60 (LEFT ARM) Cuff size: regular Heart Rate: 75 O2 Saturation: 97 Height: 5 ft 8 in Weight: 138 lb 9.6 oz Body Mass Index: 21.0 BMI Classification: Normal Neck circumference: 13.25 Mouth and throat: narrow oropharynx Soft palate: long Hard palate: normal Uvula: normal Uvula visualization: 25% Mallampati Class III Tongue: normal in size Tonsils: small Neck: normal w/o lymphadenopathy or thyromegaly Heart: regular rate and rhythm Lungs: clear bilaterally Impression and Plan 1. Suspected Obstructive Sleep Apnea-Hypopnea Syndrome, as suggested by a history of loud and irregular snoring, observed cessation of breath while asleep, gasping or choking in sleep, frequent awakening during the night, unrefreshed sleep, cognitive impairment, and excessive daytime sleepiness. Narrow oropharynx and obesity are common predisposing factors for obstructive sleep apnea-hypopnea syndrome. I recommend proceeding to polysomnography to confirm the diagnosis and to assess severity. If the patient has significant sleep disordered breathing, a manual CPAP titration study will also be performed to find the optimal treatment pressure. I informed the patient of what the sleep studies involve and after some discussion, obtained agreement to proceed. The pathophysiology of obstructive sleep apnea-hypopnea syndrome was discussed with the patient and health risks of cardiovascular and cerebrovascular disease if not treated. Risks of drowsy driving discussed in detail and patient advised to avoid long distance driving and to press puller at the first sign of drowsiness. Patient agreed to plan. * Schedule polysomnography +- manual CPAP titration study and return in 1-2 weeks after the study to discuss result and initiate therapy. * Avoid long distance driving or driving when feeling sleepy. * Avoid alcohol, sedative and muscle relaxant around bedtime. * Attempt to lose weight. * Review instructions provided by trained office staff on how to prepare for the sleep study. * Return for follow-up after sleep study completed. Counseling Topics: Weight control Visit Type: In Office Time Spent with Patient (minutes): 31 Provider Statement: I spent 100% of the Face to Face Visit with the patient with greater than 50% spent counseling the patient and coordination of care.
== END 2022-07-02 15:41 | disposition home or self-care (01) ==
LOC: SC 15:40
PROVIDERS: ATTEND Nurse Practitioner Family
DX: R06.81 Apnea, not elsewhere classified (principal); G47.8 Other sleep disorders; G47.10 Hypersomnia, unspecified; R41.89 Other symptoms and signs involving cognitive functions and awareness; R06.83 Snoring
CPT/HCPCS: 99203; 99212

== ENCOUNTER 2022-07-30 20:40 | Outpatient (CLI) | payer MEDICAID | END 2022-07-30 20:41 | disposition home or self-care (01) | LOC: SC 20:40 | PROVIDERS: ATTEND Nurse Practitioner Family | DX: G47.10 Hypersomnia, unspecified (principal); R53.83 Other fatigue; G47.8 Other sleep disorders; R06.83 Snoring; R06.81 Apnea, not elsewhere classified | CPT/HCPCS: 95810 ==

== ENCOUNTER 2022-07-31 07:04 | Outpatient (CLI) | payer MEDICAID ==
[2022-07-31 07:55] LABS: THYROID STIMULATING HORMONE 15.72 uIU/mL (0.34-5.60)
[2022-07-31 07:57] LABS: FREE T4 (FREE THYROXINE) 0.87 ng/dL (0.58-1.64)
== END 2022-07-31 07:05 | disposition home or self-care (01) ==
LOC: LAB 07:04
PROVIDERS: ATTEND Internal Medicine Endocrinology, Diabetes & Metabolism
DX: E03.8 Other specified hypothyroidism (principal); E06.3 Autoimmune thyroiditis
CPT/HCPCS: 36415; 84439; 84443; 84445

== ENCOUNTER 2022-08-08 11:16 | Outpatient (CLI) | payer MEDICAID ==
--- NOTE | 2022-08-08 11:33 | Sleep Patient Instructions ---
Sleep Center Visit Summary - Patient Visit Information Reason for Visit: Sleep study followup - Patient Instructions Instructions Attached: Sleep Study Home Monitor Additional Instructions: You will be completing a sleep study home sleep study (HST). You will follow-up in the sleep care office after the sleep study is completed to hear the results and talk about therapy, if needed. You will be called by our office staff to schedule this appointment, but you may contact us with any questions. - Clinic Information Contact: [facility] [address] [place] [address] [email or web address] T: [phone]
--- NOTE | 2022-08-08 11:36 | SLEEP CARE CONSULTATION ---
Information from patient questionnaire entered by Carmen Slade. I have reviewed and concur with the information entered by Carmen Slade. This document represents the service I personally performed and the decisions made by , Asha Emmanuel ARNP. History of Present Illness Service Date and Time: 08/08/2022 1116 Initial [place] Sleepiness Scale score: 1 (07/02/2022) Current [place] Sleepiness Scale score: 5 (08/08/22) Additional HPI information: KVNG CHAN returns for follow up and results of the recently performed polysomnography. The patient was informed of the following findings: No significant sleep disordered breathing with an average AHI of 0.4 and ketty oxygen saturation of 90%. I explained the pathophysiology behind obstructive sleep apnea. Patient does not have sleep apnea and was advised how weight gain could increase the risk of developing sleep apnea in the future. Patient has loud snoring. Snoring can be reduced by weight loss. Weight loss is best achieved with diet consult. Patient instructed to contact PCP for referral. Snoring can also be treated with an oral appliance from a dentist. Advised to check insurance coverage. In addition, an ENT evaluation can be do to see if other treatment is indicated. Patient does not drink alcohol. Patient was cautioned about risks of drowsy driving until sleepiness symptoms resolve. Patient denies drowsy driving. Sleep Study - Results Type of Sleep Study: Polysomnography (COMPLETED 07/30/22) Polysomnography/Home Sleep Study results: IMPRESSION: The quality of the study is good. The patient had slightly reduced sleep efficiency due to several awakenings during the night. The sleep architecture was relatively normal considering the first-night effect. Respiratory monitoring showed no significant sleep disordered breathing (AHI = 0.4) or hypoxia (ketty oxygen saturation of 90%). The patient slept adequately in supine position (supine AHI = 1.3; non-supine = 0.00). Snore was loud in intensity. There was no significant periodic leg movement of sleep. Cardiac rhythm was normal sinus rhythm without significant arrhythmia. No abnormal behavior (parasomnia) observed during the night. Allergies and Home Medications Known drug allergies: Yes (amoxicillin, penicillins) Drug allergies reviewed: Yes Home medication list reviewed: Yes (Levothyroxine) Allergy and home medication list: Allergies amoxicillin Allergy (Verified 08/07/22 13:44) Rash Penicillins Allergy (Verified 08/07/22 13:44) Rash Review of Systems Review of systems same as previous: No (Hashimotos) Physical Exam Vital signs obtained and entered by: CARMEN Grey MA Blood Pressure: 122/70 (LEFT ARM) Cuff size: regular Heart Rate: 95 O2 Saturation: 100 Height: 5 ft 8 in Weight: 133 lb 9.6 oz Body Mass Index: 20.2 BMI Classification: Normal Impression and Plan 1. Suspected Obstructive Sleep Apnea-Hypopnea Syndrome, as suggested by a history of loud and irregular snoring, observed cessation of breath while asleep, gasping or choking in sleep, morning headache, frequent awakening during the night, unrefreshed sleep, and excessive daytime sleepiness. Patient feels like she did not sleep much the night of the study and that it was not a good representation of her normal night's sleep. I will have her do an HST in her home environment to re-evaluate. I recommend proceeding to polysomnography to confirm the diagnosis and to assess severity. I obtained agreement to proceed. The pathophysiology of obstructive sleep apnea-hypopnea syndrome was discussed with the patient and health risks of cardiovascular and cerebrovascular disease if not treated. Risks of drowsy driving discussed in detail and patient advised to avoid long distance driving and to trap puller at the first sign of drowsiness. Patient agreed to plan. * Schedule polysomnography +- manual CPAP titration study and return in 1-2 weeks after the study to discuss result and initiate therapy. * Avoid long distance driving or driving when feeling sleepy. * Avoid alcohol, sedative and muscle relaxant around bedtime. * Review instructions provided by trained office staff on how to prepare for the sleep study. * Return for follow-up after sleep study completed. Visit Type: In Office Time Spent with Patient (minutes): 20 Provider Statement: I spent 100% of the Face to Face Visit with the patient with greater than 50% spent counseling the patient and coordination of care.
[2022-08-08 11:37] VITALS: BP 122/70
== END 2022-08-08 11:17 | disposition home or self-care (01) ==
LOC: SC 11:16
PROVIDERS: ATTEND Nurse Practitioner Family
DX: G47.10 Hypersomnia, unspecified (principal); R53.83 Other fatigue; G47.8 Other sleep disorders; R06.83 Snoring; R06.81 Apnea, not elsewhere classified
CPT/HCPCS: 99212; 99213

== ENCOUNTER 2022-08-13 12:39 | Outpatient (CLI) | payer MEDICAID ==
[~2022-08-13 12:39] MED LIST changes: -CLINDAMYCIN 600 MG/50 ML 50 ML IV ONE; +GADOBUTROL 7.5 MMOL/7.5 ML VIAL ONE
--- NOTE | 2022-08-13 16:10 | MRI Report ---
PROCEDURE: PELVIS W/WO INDICATIONS: ENDOMETRIOSIS, FEMALE PELVIC PAIN CONTRAST: gadavist 5.9ml TECHNIQUE: Coronal HASTE, sagittal breath-hold T2 FSE; axial 2-D FLASH in- and [id number], axial T1 FSE with f at saturation through the pelvis. Optional long- and short-axis uterine nonbreath-hold T2 FSE throug h the uterus. Sagittal or axial dynamic VIBE during IV gadolinium administration; postgadolinium axi al and sagittal VIBE/2-D FLASH with fat saturation from the iliac crests to the symphysis. COMPARISON: Pelvic ultrasound 07/01/2022, CT abdomen pelvis 10/09/2021 FINDINGS: Image quality: Excellent. Uterus: Surgically absent uterus. Vaginal cuff appears normal. At the posterior apex of the vaginal cuff, there is a small ill-defined T2 hypointense, thin plaque measuring by 1.1 cm in greatest diamet er extending towards the anterior serosal surface of the and tethering to the rectum. This area is hy poenhancing postcontrast it may indicate endometriosis. There is physiologic free fluid in the pelvis . Adnexa: The ovaries appear normal in morphology and size. The left measures 2.7 cm in diameter and th e right measures 4.0 cm. There is a thick-walled, involuting peripherally vascular cyst within the ri ght ovary measuring 2.2 cm consistent with a corpus luteum. No suspicious masses Urinary system:Urinary bladder and urethra appear normal. Abdomen: No evidence of pelvic small bowel obstruction or other bowel wall tethering. Rectosigmoid h as a normal appearance as visualized. Bones and soft tissues: Normal signal in the bones and skeletal muscle. IMPRESSION: 1. Possible small plaque along the posterior vaginal cuff tethering the anterior serosal surface of t he rectum. Findings are suspicious for adenomyosis but may also be indicative of hypovascular scar. C orrelate clinically. 2. Normal ovaries. Reviewed by: Aracely Walls MD on 08/13/2022 3:09 PM [place] Approved by: Aracely Walls MD on 08/13/2022 3:09 PM LAS[place] Station ID: [id number]
[2022-08-13] MEDS ORDERED: GADOBUTROL 7.5 MMOL/7.5 ML VIAL IVP ONE (17:30)
== END 2022-08-13 12:40 | disposition home or self-care (01) ==
LOC: DI 12:39
PROVIDERS: ATTEND Nurse Practitioner
DX: N80.9 Endometriosis, unspecified (principal); R10.2 Pelvic and perineal pain; R93.89 Abnormal findings on diagnostic imaging of other specified body structures
CPT/HCPCS: 72197; A9585

== ENCOUNTER 2022-09-23 14:24 | Outpatient (CLI) | payer MEDICAID | END 2022-09-23 14:25 | disposition home or self-care (01) | LOC: SC 14:24 | PROVIDERS: ATTEND Nurse Practitioner Family | DX: R09.02 Hypoxemia (principal) | CPT/HCPCS: 95806 ==

== ENCOUNTER 2022-10-22 14:14 | Outpatient (CLI) | payer MEDICAID ==
--- NOTE | 2022-10-22 14:42 | SLEEP CARE CONSULTATION ---
Information from patient questionnaire entered by Carmen Slade. I have reviewed and concur with the information entered by Carmen Slade. This document represents the service I personally performed and the decisions made by , Asha Emmanuel ARNP. History of Present Illness Service Date and Time: 10/22/2022 1414 Initial [place] Sleepiness Scale score: 1 (07/02/2022) Current [place] Sleepiness Scale score: 8 (10/22/22) Additional HPI information: KVNG CHAN returns for follow up and results of the recently performed home sleep study. The patient was informed of the following findings: No significant sleep disordered breathing with an average AHI of 1.1 and ketty oxygen saturation of 81%. I explained the pathophysiology behind obstructive sleep apnea. Patient does not have sleep apnea and was advised how weight gain could increase the risk of developing sleep apnea in the future. Patient has snoring as seen in her PSG. Snoring can be reduced by weight loss. Weight loss is best achieved with diet consult. Patient instructed to contact PCP for referral. Snoring can also be treated with an oral appliance from a dentist. Advised to check insurance coverage. In addition, an ENT evaluation can be do to see if other treatment is indicated. Patient does not drink alcohol. Patient was cautioned about risks of drowsy driving until sleepiness symptoms resolve. Patient denies drowsy driving. Sleep Study - Results Type of Sleep Study: Home sleep study (COMPLETED 09/24/22) Polysomnography/Home Sleep Study results: Physician Impression: The quality of the study is good. The length of the study is adequate (> 240 minutes). Please also see the tabulated and graphic data. 1. No significant sleep disordered breathing, with an AHI of 1.1/hr and ketty SaO2 of 81%. During the study, the patient had 6 apneas (4 obstructive, 2 central, 0 mixed) and 4 hypopneas. The longest episode lasted 49.0 seconds. The patient slept adequately in supine position (supine AHI was 0.5 and non-supine, 1.60). 2. Hypoxemia (ICD-10 R09.02), mild, with the lowest oxygen saturation of 81 % and 1.4 minutes with SaO2 under 90%. Baseline oxygen saturation was normal (Average oxygen saturation was 96%). Allergies and Home Medications Known drug allergies: Yes (as listed) Drug allergies reviewed: Yes Home medication list reviewed: Yes (no changes) Allergy and home medication list: Allergies amoxicillin Allergy (Verified 10/21/22 09:44) Rash Penicillins Allergy (Verified 10/21/22 09:44) Rash Review of Systems Review of systems same as previous: Yes (no changes) Physical Exam Vital signs obtained and entered by: CARMEN Grey MA Blood Pressure: 100/60 (LEFT ARM) Cuff size: regular Heart Rate: 76 O2 Saturation: 100 Height: 5 ft 8 in Weight: 135 lb 6.4 oz Body Mass Index: 20.5 BMI Classification: Normal Impression and Plan 1. Snoring but no significant sleep disordered breathing. Patient advised that maintaining a healthy weight will reduce snoring as well as apnea risk. An oral appliance can also be used for snoring. This would require a dental consultation. Patient cautioned not to use other online appliances as can cause bite issues. Patient is advised to check if insurance will cover. An ENT consult can also be helpful to determine if any other treatment is an option. * Maintain a healthy weight * Return as needed for follow up. Counseling Topics: Weight control Visit Type: In Office Time Spent with Patient (minutes): 15 Provider Statement: I spent 100% of the Face to Face Visit with the patient with greater than 50% spent counseling the patient and coordination of care.
[2022-10-22 14:52] VITALS: BP 100/60; O2SAT 100
== END 2022-10-22 14:15 | disposition home or self-care (01) ==
LOC: SC 14:14
PROVIDERS: ATTEND Nurse Practitioner Family
DX: R06.83 Snoring (principal)
CPT/HCPCS: 99212

== ENCOUNTER 2023-07-16 10:02 | Outpatient (CLI) | payer MEDICAID ==
--- NOTE | 2023-07-16 15:33 | XRAY Report ---
PROCEDURE: Hips w/Pelvis 2-3V BL INDICATIONS: RIGHT HIP PAIN TECHNIQUE: 3 view(s) of the hip were acquired. COMPARISON: None. FINDINGS: Bones: No fractures or dislocations. No suspicious bony lesions. No evidence of avascular necrosis of femoral head. The visualized pelvic ring appears intact. Soft tissues: No suspicious soft tissue calcifications or masses. IMPRESSION: No acute bony abnormality. No evidence of avascular necrosis. Reviewed by: Parth Bloom MD on 07/16/2023 3:31 PM PDT Approved by: Parth Bloom MD on 07/16/2023 3:31 PM PDT Station ID: [id number]
== END 2023-07-16 10:03 | disposition home or self-care (01) ==
LOC: DI 10:02
PROVIDERS: ATTEND Physician Assistant
DX: M25.551 Pain in right hip (principal); M76.31 Iliotibial band syndrome, right leg